=== PATIENT | female | born 1995 | race Caucasian/White ===

== ENCOUNTER 2017-12-31 12:42 | Emergency (ER) | payer OTHER ==
--- NOTE | 2017-12-31 14:44 | EDPHY ---
H & P Time Seen by Provider: 12/31/17 14:39 HPI/ROS: CHIEF COMPLAINT: Cough, abdominal pain, fever HISTORY OF PRESENT ILLNESS: Patient is had a little bit of a cough for the last 10 days. No sputum production, not short of breath, no recent travel, no IV drugs. Or last 2 days she developed abdominal pain which is mostly right- sided and worse when she walks and when she moves. It is worse with coughing. It varies from upper abdomen to lower abdomen and isn't well localized. She also had a mild sore throat. Symptoms mild to moderate, the radiation appears to be starting the right upper quadrant going to the lower part. No vaginal symptoms or urinary symptoms. REVIEW OF SYSTEMS: Eye: no change in vision ENT: no sore throat Cardiac: no chest pain or syncope Pulmonary: HPI no hemoptysis Abdomen: No vomiting or diarrhea Musculoskeletal: No leg swelling Skin: no rash Neuro: no headache Constitutional: no fever : no urinary symptoms A comprehensive 10 point review of systems is otherwise negative aside from elements mentioned in the history of present illness. PAST MEDICAL HISTORY: Foot surgery as a high school freshman Social history: Negative for IV drug abuse or foreign travel General Appearance: Alert and conversant, cooperative. Eyes: No scleral icterus. ENT, Mouth: Normal mucous membranes. Respiratory: Normal respiratory effort, breath sounds equal, lungs are clear to auscultation. Not splinting. Speaks in full sentences. Cardiovascular: Regular rate and rhythm. Gastrointestinal: Right lower quadrant abdominal tenderness without rebound or guarding at McBurney's point, negative Seo sign. Neurological: Alert, face symmetric, normal motor and sensory in extremities. Ambulatory. Skin: Warm and dry, no rashes. Musculoskeletal: No peripheral edema. Psychiatric: Not agitated. Emergency Department course/MDM: Unclear if she has abdominal pain from coughing from her respiratory infection, could have pneumonia in the right lower lobe. Also possible that she has acute abdominal pain with problem such as appendicitis in the setting of a recent URI. Labs to include CBC LFTs and lipase, test and pelvic and appendiceal ultrasound, chest x-ray. 1559: Ultrasound negative but cannot see the appendix. Pelvis is normal. Reported by Dr. Tee at this time. CT abdomen and pelvis to evaluate her appendix discussed and consented at this time. Not visualized on ultrasound. 1721: Results discussed with the patient, symptomatic treatment at this time. More likely viral, I think acute surgical process is unlikely. Pulmonary infection unlikely. I do not think she has indications for antibiotics. Patient is okay with going home with symptomatic treatment, is in agreement with the plan. Smoking Status: Never smoked Constitutional: Initial Vital Signs Temperature (C) 37.9 C 12/31/17 12:54 Heart Rate 90 12/31/17 12:54 Respiratory Rate 18 12/31/17 12:54 Blood Pressure 126/86 H 12/31/17 12:54 O2 Sat (%) 98 12/31/17 12:54 O2 Delivery Mode Room Air Allergies/Adverse Reactions: No Known Allergies Allergy (Unverified 12/31/17 12:54) Medical Decision Making - Diagnostics Imaging Results: Imaging Impressions Abdomen Ultrasound 12/31/17 14:52 Impression: Appendix is not identified. No free fluid. Findings discussed with Emergency Department physician, Dr. Mookie Hung on December 31, 2017 at 1558 hours. Chest X-Ray 12/31/17 14:52 Impression: Mild peribronchial thickening suggesting airways disease/bronchitis. Pelvic/Renal Ultrasound 12/31/17 14:52 Impression: 1. Normal right ovary. No ovarian cyst, free fluid or torsion. 2. Normal uterus. 3. Left ovary is not visualized (obscured by bowel gas). Findings discussed with Emergency Department physician, Dr. Mookie Hung on December 31, [address] at [address] 12/31/17 16:00 Impression: 1. Prominent fecal material limited to the ascending colon and patulous pelvic cecum. 2. Normal appendix. 3. Possible noninflamed Meckel's diverticulum. Cyst was left for Dr. Hung with Kang at 5:05 pm. General information for patients regarding this examination can be found at [email or web address]. If you have questions or comments about this report, please contact me at (hospital) or [phone] (cell). Imaging: Discussed imaging studies w/ orthopedically impaired teacher Radiologist - Data Points Laboratory Results: Laboratory Results 12/31/17 14:35 12/31/17 14:35 12/31/17 12/31/17 12/31/17 17:20 14:40 14:35 WBC RBC Hgb Hct MCV MCH MCHC RDW Plt Count MPV Neut % (Auto) Lymph % (Auto) [place] % (Auto) Eos % (Auto) Baso % (Auto) Nucleat RBC Rel Count Absolute Neuts (auto) Absolute Lymphs (auto) Absolute Monos (auto) Absolute Eos (auto) Absolute Basos (auto) Absolute Nucleated RBC Immature Gran % Immature Gran # RBC/WBC/PLT Morphology Platelet Estimate Sodium Potassium Chloride Carbon Dioxide Anion Gap BUN Creatinine Estimated GFR Glucose Calcium Total Bilirubin Conjugated Bilirubin Unconjugated Bilirubin AST ALT Alkaline Phosphatase Total Protein Albumin Lipase Beta HCG, Qual NEGATIVE Urine Color YELLOW Urine Appearance CLEAR Urine pH 6.0 (5.0-7.5) Ur Specific Procious 1.027 (1.002-1.030) Urine Protein NEGATIVE (NEGATIVE) Urine Ketones 1+ H (NEGATIVE) Urine Blood NEGATIVE (NEGATIVE) Urine Nitrate NEGATIVE (NEGATIVE) Urine Bilirubin NEGATIVE (NEGATIVE) Urine Urobilinogen NEGATIVE EU EU (0.2-1.0) Ur Leukocyte Esterase NEGATIVE (NEGATIVE) Urine Glucose NEGATIVE (NEGATIVE) Nasal Influenza A PCR NEGATIVE FOR FLU A (NEGATIVE) Nasal Influenza B PCR NEGATIVE FOR FLU B (NEGATIVE) 12/31/17 12/31/17 14:35 14:35 WBC 8.90 10^3/uL 10^3/uL (3.80-9.50) RBC 4.59 10^6/uL 10^6/uL (4.18-5.33) Hgb 14.9 g/dL g/dL (12.6-16.3) Hct 41.4 % % (38.0-47.0) MCV 90.2 fL fL (81.5-99.8) MCH 32.5 pg pg (27.9-34.1) MCHC 36.0 g/dL g/dL (32.4-36.7) RDW 12.7 % % (11.5-15.2) Plt Count 177 10^3/uL 10^3/uL (150-400) MPV 10.7 fL fL (8.7-11.7) Neut % (Auto) 86.3 % H % (39.3-74.2) Lymph % (Auto) 5.8 % L % (15.0-45.0) [place] % (Auto) 7.3 % % (4.5-13.0) Eos % (Auto) 0.2 % L % (0.6-7.6) Baso % (Auto) 0.2 % L % (0.3-1.7) Nucleat RBC Rel Count 0.0 % % (0.0-0.2) Absolute Neuts (auto) 7.68 10^3/uL H 10^3/uL (1.70-6.50) Absolute Lymphs (auto) 0.52 10^3/uL L 10^3/uL (1.00-3.00) Absolute Monos (auto) 0.65 10^3/uL 10^3/uL (0.30-0.80) Absolute Eos (auto) 0.02 10^3/uL L 10^3/uL (0.03-0.40) Absolute Basos (auto) 0.02 10^3/uL 10^3/uL (0.02-0.10) Absolute Nucleated RBC 0.00 10^3/uL 10^3/uL (0-0.01) Immature Gran % 0.2 % % (0.0-1.1) Immature Gran # 0.02 10^3/uL 10^3/uL (0.00-0.10) RBC/WBC/PLT Morphology TNP Platelet Estimate TNP Sodium 136 mEq/L mEq/L (135-145) Potassium 4.2 mEq/L mEq/L (3.3-5.0) Chloride 102 mEq/L mEq/L (97-110) Carbon Dioxide 23 mEq/l mEq/l (22-31) Anion Gap 11 mEq/L mEq/L (6-14) BUN 9 mg/dL mg/dL (7-23) Creatinine 0.8 mg/dL mg/dL (0.6-1.0) Estimated GFR > 60 Glucose 88 mg/dL mg/dL (70-100) Calcium 9.9 mg/dL mg/dL (8.5-10.4) Total Bilirubin 0.8 mg/dL mg/dL (0.1-1.4) Conjugated Bilirubin 0.3 mg/dL mg/dL (0.0-0.5) Unconjugated Bilirubin 0.5 mg/dL mg/dL (0.0-1.1) AST 31 IU/L IU/L (14-46) ALT 32 IU/L IU/L (9-52) Alkaline Phosphatase 78 IU/L IU/L (38-126) Total Protein 7.5 g/dL g/dL (6.3-8.2) Albumin 4.7 g/dL g/dL (3.5-5.0) Lipase 79 IU/L IU/L (23-300) Beta HCG, Qual Urine Color Urine Appearance Urine pH Ur Specific Procious Urine Protein Urine Ketones Urine Blood Urine Nitrate Urine Bilirubin Urine Urobilinogen Ur Leukocyte Esterase Urine Glucose Nasal Influenza A PCR Nasal Influenza B PCR Medications Given: Discontinued Medications Acetaminophen (Tylenol) 650 mg PO EDNOW ONE Stop: 12/31/17 14:53 Last Admin: 12/31/17 15:12 Dose: 650 mg Sodium Chloride (Ns) 1,000 mls @ 0 mls/hr IV EDNOW ONE; Wide Open PRN Reason: Protocol Stop: 12/31/17 14:53 Last Admin: 12/31/17 15:12 Dose: 1,000 mls Departure - Departure Disposition: Home, Routine, Self-Care Clinical Impression: Abdominal pain Qualifiers: Abdominal location: right lower quadrant Qualified Code(s): R10.31 - Right lower quadrant pain URI (upper respiratory infection) Qualifiers: URI type: unspecified viral URI Qualified Code(s): J06.9 - Acute upper respiratory infection, unspecified Condition: Good Instructions: Upper Respiratory Infection (ED), Acute Abdominal Pain (ED) Additional Instructions: Please follow-up with primary care referral next week if you're still symptomatic. The Tylenol 650 mg or ibuprofen 600 mg orally every 8 hr as needed for pain over the next 3-5 days. Return if you get worsening or severe abdominal pain. Referrals: Soni Whitmore MD [Medical Doctor] - As per Instructions
[2017-12-31] MEDS ORDERED: NS 1,000 ML IV ONE (14:52)
[2017-12-31] MEDS ORDERED: ACETAMINOPHEN 325 MG TAB PO ONE (14:52)
[2017-12-31 15:03] LABS: PLATELET COUNT 177 10^3/uL (150-400)
[2017-12-31] MEDS ORDERED: IOPAMIDOL (ISOVUE-300) 100 ML BTL ONE (16:30)
[2017-12-31 17:33] VITALS: BP 130/76
== END 2017-12-31 17:31 | disposition home or self-care (01) ==
DX: R10.31 Right lower quadrant pain (principal); J06.9 Acute upper respiratory infection, unspecified
CPT/HCPCS: Q9967